=== PATIENT | male | born 1990 | race Caucasian/White ===

== ENCOUNTER 2022-07-27 02:17 | Outpatient (CLI) | payer MEDICAID, SELFPAY ==
[2022-09-05 13:17] LABS: Chromosome Analysis(UVM) (See below)
== END 2022-07-27 02:18 | disposition home or self-care (01) ==
LOC: LBO 02:18
PROVIDERS: Visit Provider Obstetrics & Gynecology
DX: Z31.441 Encounter for testing of male partner of patient with recurrent pregnancy loss (principal)
CPT/HCPCS: 36415; 88230; 88262